=== PATIENT | female | born 1980 | race Caucasian/White ===

== ENCOUNTER 2016-10-27 06:35 | Inpatient (IN) | payer OTHER ==
[2016-10-27 07:20] VITALS: BMI 36.0
[2016-10-27] MEDS ORDERED: ONDANSETRON 4 MG/2 ML VIAL IVPB PRN (08:01)
[2016-10-27] MEDS ORDERED: ELECTROLYTE-148 SOLN 500 ML IV ONE (08:08)
[2016-10-27] MEDS ORDERED: CITRIC ACID/SODIUM CITRATE 30 ML UNIT-DOSE CUP PO ONE (08:08)
[2016-10-27] MEDS ORDERED: ELECTROLYTE-148 SOLN 1,000 ML IV SCH (08:15)
--- NOTE | 2016-10-27 08:15 | HP ---
Past Medical History - Primary Care Physician PCP:: Loly Pearce - Admission Chief Complaint: 36 yrs (AMA), , 39 weeks IUP , previous c/s , requests for repeat c/s & voluntory sterlization History of Present Illness: PNC at [address] [place] [address] work Up : O Pos, Rpr nr, Hbsag neg, Rubella pos, Hiv neg, Quantiferon neg, GBS pos ! hr [id number], 3 Hr Gtt 83/170/130/119 sono reports not on chart History Source: Patient, Medical Record Limitations to Obtaining History: No Limitations - Past Medical History CLAIMS SUPPORT SPECIALIST: No: Migraine, Seizure Cardiovascular: No: HTN Pulmonary: No: Asthma Gastrointestinal: No: Gastritis Renal/: Yes: UTI (in 1st trimester treted) ...: 3 ...Para: 1 ...Term: 1 (06/12/2011 primary c/section 42 weeks, 7'8" girl ) ...: 0 ...Spon : 1 (10/17/2009 ) ...Induced : 0 ...Multiple Gestation: 0 ...LMP: 01/28/16 ... Weeks Gestation by Dates: 39 ...EDC by Dates: 11/03/16 ...EDC by Sono: 11/03/16 (by early sono at 7/1 weeks ) Heme/Onc: Yes: Anemia (rx po iron & pnv) Infectious Disease: No: AIDS, HIV, STD's, Tuberculosis Psych: No: Addictions, Anxiety, Bipolar, Depression, Panic, Psychosis, Schizophrenia - Past Surgical History Past Surgical History: Yes: (06/12/2011) Hx Myomectomy: No Hx Transabdominal Cerclage: No - Smoking History Smoking history: Never smoked Have you smoked in the past 12 months: No - Alcohol/Substance Use Hx Alcohol Use: No History of Substance Use: reports: None Home Medications - Allergies Allergies/Adverse Reactions: Allergies Allergy/AdvReac Type Severity Reaction Status Date / Time No Known Allergies Allergy Verified 04/15/16 11:50 - Home Medications Home Medications: Ambulatory Orders Pnv Comb.no58/Iron Bisgly/FA [ Capsule] 1 cap PO DAILY 06/12/11 Physical Exam - Maternity Vital Signs: Vital Signs Temperature 97.9 F 10/27/16 06:35 Pulse Rate 103 H 10/27/16 06:35 Respiratory Rate 20 10/27/16 06:35 Blood Pressure 114/81 10/27/16 06:35 O2 Sat by Pulse Oximetry (%) Selected Entries 10/27/16 06:35 Weight 197 lb Constitutional: Yes: Well Nourished, Obese Eyes: Yes: WNL HENT: Yes: WNL, Normocephalic Neck: Yes: WNL Cardiovascular: Yes: WNL, Regular Rate and Rhythm Lungs: Clear to auscultation Breast(s): Yes: WNL - Abdominal Exam/OB Fundal Height: 40 Number of Fetuses: Single Presentation: Vertex Contractions: No Heart Rate (range): 130 Heart Rate Location: Midline Category: I Accelerations: Uniform Decelerations: None - Vaginal Exam/OB Vaginal Bleediing: No Speculum Exam: No Dilatation (cm): close Effacement (%): unefface Presentation: Vertex/Position Station: -3 - Physical Exam Musculoskeletal: Yes: WNL Extremities: Yes: WNL. No: Calf Tenderness Edema: Yes Edema: LLE: 1+, RLE: 1+ Integumentary: Yes: Incision (old pfannensteil scar keloid through the length of incision) Deep Tendon Reflex Grade: Normal +2 ...Motor Strength: WNL Psychiatric: Yes: WNL, Alert, Oriented - Labs Lab Results: Laboratory Tests 11/16/10 10/25/16 10/25/16 08:19 10:33 10:33 WBC 7.2 Hgb 12.5 Hct 36.0 Plt Count 157 D Lymphocytes # 28.7 Absolute Monocytes 6.0 Neutrophils % 56.9 Lymphocytes % 33.8 Monocytes % 8.2 Eosinophils % 0.8 Basophils % 0.3 INR Sodium Potassium Chloride Carbon Dioxide BUN Creatinine Random Glucose AST ALT Urine Protein Negative RPR Titer 10/25/16 10/25/16 10/25/16 10:33 10:33 10:33 WBC Hgb Hct Plt Count Lymphocytes # Absolute Monocytes Neutrophils % Lymphocytes % Monocytes % Eosinophils % Basophils % INR 1.04 Sodium 137 Potassium 4.3 Chloride 103 Carbon Dioxide 24 BUN 6 L Creatinine 0.6 Random Glucose 79 AST 19 D ALT 21 Urine Protein RPR Titer Nonreactive Hemorrhage Risk Assessment - Risk Factors Risk Score: 0 Risk Level: Low Risk Problem List - Problems (1) 39 weeks gestation of Code(s): Z3A.39 - 39 WEEKS GESTATION OF (2) Previous section Code(s): Z98.891 - HISTORY OF UTERINE SCAR FROM PREVIOUS SURGERY (3) Multiparity Code(s): Z64.1 - PROBLEMS RELATED TO MULTIPARITY (4) AMA (advanced maternal age) multigravida 35+ Code(s): O09.529 - SUPERVISION OF ELDERLY MULTIGRAVIDA, UNSPECIFIED TRIMESTER (5) Positive GBS test Code(s): B95.1 - STREPTOCOCCUS, GROUP B, CAUSING DISEASES CLASSD [id number] Assessment/Plan 36 yrs 39 weeks, previous c/s, requests for repeat c/s, GBS pos Plan Repeat c/section & BTL Pt informed r/b/a, of BTL possible menorrhagia, dysmenorrhea, failure BTL, , ectopic etc
--- NOTE | 2016-10-27 10:07 | PN ---
Delivery - Delivery Section: Repeat, Low Flap Transverse (BTL & Lysis of adhesions ( omental )) Type of Anesthesia: Spinal Episiotomy/Laceration: None EBL (cc): 500 (velazquez output 50 ml rosy color ) Delivery, Single - Stages of Labor Date of Delivery: 10/27/16 Time of Delivery: 08:40 Time Placenta Delivered: 08:41 Placenta: Yes: Manual Removal, Uterine Exploration - Condition of Electronic Component Processor/Surveyor Mine Present: Yes Name: Fredo Balbuena Infant Gender: Female Weight: 8 lb 3 oz Position: OP Total Hours ROM (Hrs/Mins): 0/1 - 1 Minute Total Score: 9 5 Minutes Total Score: 9 - Feeding Plan Initial Plan: Exclusive throughout hospitalization Remarks - Remarks Remarks: 36 Yrs (AMA) , , 39 weeks, Previous c/s, requests repeat c/section & voluntory sterlization GBS pos PNC at , [facility] Keloid skin old scar excised omental adhesions lysisi was done 2 gm IV Ancef prior to incision was given . Intramural fibroid noted anteriorly 4cm x5cm intraop course uneventful
--- NOTE | 2016-10-27 10:12 | OP ---
Operative Note - Note: Operative Date: 10/27/16 Pre-Operative Diagnosis: 39 weeks, previous c/section, voluntory sterlization Operation: Repeat LFTC/section BTL , Lysis of adhesions, excision of Keloid skin scar Findings: 10/27/16 8.40 AM, 9/9, Wt 8'3". Baby Girl, Op position Both tubes ligated & cut by modified [place]'s technique Intramural 4x5 cm fibroid was noted scarring of subcutaneous tissuse, , skin incision scar keloid excised omental adhesions to parietal peritoneum clamped cut ligated .from both sides both ovaries normal Post-Operative Diagnosis: Other (intramural fibroid , omental adhesions) Surgeon: Loly Pearce House Fellow: Javy Francis Anesthesiologist/COMMUNICATION STUDIES PROFESSOR: Payam Luis Anesthesia: Spinal Specimens Removed: keloid skin scar. placenta. cord blood Estimated Blood Loss (mls): 500 Drains, Volume Out (mls): 50 (velazquez, rosy color ) Fluid Volume Replaced (mls): 1,200 (2 gm IV ancef prior to incision ) Operative Report Dictated: Yes
[2016-10-27] MEDS ORDERED: METHYLERGONOVINE MALEATE 0.2 MG/1 ML AMP IM PRN (10:27)
[2016-10-27] MEDS: D5W-LR W/ 20 UNITS OXYTOCIN 1,000 ML IV SCH (10:34)
--- NOTE | 2016-10-27 11:06 | OP ---
DATE OF OPERATION: 10/27/2016 PREOPERATIVE DIAGNOSIS: at 39 weeks, previous section, voluntary sterilization, and obesity. OPERATION: Repeat low flap transverse section, bilateral tubal ligation, lysis of adhesions, excision of keloid skin scar. SURGEON: Loly Pearce MD PUBLIC WORKS LABORER: ALYSA Gill ANESTHESIOLOGIST: Payam Luis DO ANESTHESIA: Spinal. FINDINGS: This is a 36-year-old 3, para 1-0-1-1. She is 39 weeks gestation, previous , not in labor. She requests voluntary sterilization also. DESCRIPTION OF PROCEDURE: The patient was taken to the operating room table. Abdomen was shaved. Teresa catheter was placed. She was given spinal anesthesia , placed in supine position. Abdomen was painted and draped in the usual manner. The previous skin scar was very much hypertrophied, hyperpigmented, keloid type of a scar throughout the length of the incision, so elliptical incision was made around that scar and old keloid was excised. In subcutaneous tissue a lot of scarring was encountered. Subcutaneous tissue was incised transversely, and then the rectus sheath was from the rectus muscle. The parietal peritoneum was opened vertically. There were omental adhesions on both sides. To enable better exposure, the incision on the right side the muscles were also transected. There were adhesions from the uterus that were excised, and the bladder peritoneum was opened transversely and the bladder was pushed down. Lower uterine segment was incised transversely. Amniotic fluid was clear. Baby was delivered at 8:40 a.m., baby girl from OP position. Cord around the neck was x1. Baby's was 9, 9, and the weight was 8 pounds 3 ounces. Cord was clamped, cut. Cord blood was collected and then placenta was removed completely with the membranes. Uterus was brought out of the incision. Uterine cavity was cleaned, and then the uterine incision was closed in 2 layers. First layer was a continuous locking with the Biosyn 0 suture. The second layer was a continuous intermittent locking with Biosyn 0 suture. Bladder peritoneum was closed with Biosyn 0 suture. Both the tubes were identified at the fimbrial end, and the ampullary portion of the tube was ligated with plain 2-0 suture 2 times, and the portion of the tube above the ligation was cut and endosalpinx was cauterized. This procedure was done both on the left and the right tube, and both the portions of the tubes were sent for pathology examination. Both the ovaries were normal. The uterus was placed back into the peritoneal cavity. The sponge, instrument, and needle count was correct. Irrigation was done and hemostasis was once again verified, then the closure of the abdomen was done. Parietal peritoneum with omental adhesions on the left side and the right side was then cut and ligated with a plain 2-0, and the peritoneum was freed from the adhesions, and then the parietal peritoneum was closed with a Vicryl suture. The muscles were approximated together with a Biosyn 0 suture. Transected muscle also was approximated together with the Biosyn 0 suture. Hemostasis was checked underneath the rectus sheath, then anterior rectus sheath was closed with 0 Vicryl suture. Hemostasis was checked in subcutaneous tissue. Subcutaneous tissue was approximated together with the Biosyn 0 suture with interrupted suture, and then the skin was approximated with 4-0 Biosyn on a V-Loc suture. Intradermal sutures were taken. Pressure dressing was given. Bood clots were removed from the vagina, cleaned with Betadine,. Steri-Strips were applied prior to the pressure dressing on the skin incision. The patient tolerated the procedure well. She was transferred to the recovery room in stable condition. She received 2g of IV Ancef prior to the incision, and she received 1200 ml of crstalloid solution. Urine output was 50 mL. Estimated blood loss was 500 mL. Magdi [id number] MTDD
[2016-10-27] MEDS: IBUPROFEN 800 MG/8 ML IJ IVPB PRN (12:38)
[2016-10-27] MEDS ORDERED: CEFAZOLIN 1 GM/D5W 50 ML IVPB SCH (18:00)
[2016-10-27] MEDS ORDERED: ceFAZolin SODIUM 1 GM VIAL ONE (18:07)
[2016-10-27] MEDS ORDERED: DEXTROSE 5%-WATER - 50 ML IVPB ONE (18:07)
[2016-10-27] MEDS: CEFAZOLIN 1 GM in DEXTROSE 5%-WATER - 50 ML IVPB SCH (18:08)
[2016-10-28] MEDS ORDERED: DEXTROSE 5%-WATER - 50 ML IVPB ONE ×2 (02:05→09:44)
[2016-10-28] MEDS ORDERED: ceFAZolin SODIUM 1 GM VIAL ONE ×2 (02:05→09:44)
[2016-10-28] MEDS: CEFAZOLIN 1 GM in DEXTROSE 5%-WATER - 50 ML IVPB SCH ×2 (02:12→09:49)
[2016-10-28] MEDS: IBUPROFEN 800 MG/8 ML IJ IVPB PRN (04:40)
[2016-10-28 07:25] LABS: BASOPHIL 0.5 % (0-2.0); EOSINOPHIL 0.7 % (0-4.5); MCH 29.7 pg (25.7-33.7); MCHC 35.9 g/dl (32.0-36.0); MEAN CELL VOLUME 82.8 fl (80-96); MEAN PLT VOLUME 10.1 fl (7.5-11.1); PLATELET COUNT 142 K/MM3 (134-434); RDW 15.9 % (11.6-15.6); WHITE BLOOD COUNT 10.8 K/mm3 (4.0-10.0)
[2016-10-28] MEDS: D5W-LR W/ 20 UNITS OXYTOCIN 1,000 ML IV SCH (07:29)
[2016-10-28] MEDS ORDERED: oxyCODONE HCL 5 MG TABLET PO PRN ×2 (08:00)
--- NOTE | 2016-10-28 08:52 | PN ---
Progress Note, Physician Chief Complaint: Pt. ambulating, not yet voided. Pain controlled, no anesthesia complaints. - Current Medication List Current Medications: Active Medications Acetaminophen (Tylenol -) 650 mg PO Q4H PRN PRN Reason: FEVER OR PAIN Bisacodyl (Dulcolax Suppository -) 10 mg RC PRN PRN PRN Reason: CONSTIPATION Diphenhydramine HCl (Benadryl Injection -) 25 mg IVPUSH Q4H PRN PRN Reason: Pruritis Enoxaparin Sodium (Lovenox -) 40 mg SQ DAILY [facility] Ferrous Sulfate (Feosol -) 325 mg PO BIDPC [facility] Dextrose/Lactated Ringer's (Pitocin 20 Units In D5-Lr -) 1,000 mls @ 125 mls/ hr IV ASDIR [facility] Last Admin: 10/28/16 07:29 Dose: 125 mls/hr Cefazolin Sodium 1 gm/ (Dextrose) 50 mls @ 100 mls/hr IVPB Q8H-IV [facility] Stop: 10/28/16 17:59 Last Admin: 10/28/16 02:12 Dose: 100 mls/hr Ibuprofen (Motrin -) 600 mg PO Q4H PRN PRN Reason: PAIN Ibuprofen (Caldolor Injection -) 800 mg IVPB Q8H PRN PRN Reason: PAIN OR FEVER Stop: 10/28/16 10:26 Last Admin: 10/28/16 04:40 Dose: 800 mg Methylergonovine Maleate (Methergine Injection -) 0.2 mg IM Q4H PRN PRN Reason: Excessive Bleeding (L&D) Oxycodone HCl (Roxicodone -) 5 mg PO Q4H PRN PRN Reason: PAIN LEVEL 1-5 Oxycodone HCl (Roxicodone -) 10 mg PO Q4H PRN PRN Reason: PAIN LEVEL 6-10 Multivit/Folic Acid/Iron ( Vitamins (Sjr) -) 1 tab PO DAILY [facility] Simethicone (Mylicon -) 80 mg PO Q4H PRN PRN Reason: GAS - Objective Vital Signs: Vital Signs Temperature 98.1 F 10/28/16 05:57 Pulse Rate 76 10/28/16 05:57 Respiratory Rate 18 10/28/16 05:57 Blood Pressure 96/52 10/28/16 05:57 O2 Sat by Pulse Oximetry (%) Constitutional: Yes: Well Nourished, No Distress, Calm Musculoskeletal: Yes: WNL Neurological: Yes: WNL, Alert, Oriented ...Motor Strength: WNL Labs: CBC, BMP 10/28/16 07:05 Assessment/Plan POD#1 s/p repeat with bilateral tubal ligation under spinal. Doing well. D/C from anesthesia care once she voids.
[2016-10-28] MEDS: SIMETHICONE 80 MG TAB.CHEW (FP) PO PRN ×2 (09:49→21:23)
[2016-10-28] MEDS: ENOXAPARIN NA (PORCINE) 40 MG/0.4 ML DISP.SYRIN SQ SCH ×2 (09:50→12:09)
[2016-10-28] MEDS: FERROUS SO4 325 MG TABLET (FP) PO SCH ×2 (10:25→19:27)
[2016-10-28] MEDS ORDERED: BISACODYL 10 MG SUPP.RECT RC PRN (10:27)
--- NOTE | 2016-10-28 11:01 | PN ---
Progress Note (short form) - Note Progress Note: pod 1 doing well, has mild incisional pain Last Vital Signs Temp Pulse Resp BP Pulse Ox 98.1 F 76 18 96/52 10/28/16 05:57 10/28/16 05:57 10/28/16 05:57 10/28/16 05:57 Last Vital Signs Temp Pulse Resp BP Pulse Ox 98.1 F 76 18 96/52 10/28/16 05:57 10/28/16 05:57 10/28/16 05:57 10/28/16 05:57 abdomen soft, no distension, no cva uterus firm, non tender no calf tenderness plan ambulate , pain management. advance diet CBC, BMP 10/28/16 07:05
[2016-10-28] MEDS: PRENATAL VITAMINS W/ FOLIC ACID TABLET (FP) PO SCH (12:07)
[2016-10-28] MEDS: ACETAMINOPHEN 325 MG TABLET (FP) PO PRN ×2 (12:27→21:24)
[2016-10-28] MEDS: IBUPROFEN 600 MG TABLET (FP) PO PRN ×2 (12:27→21:25)
[2016-10-29] MEDS: IBUPROFEN 600 MG TABLET (FP) PO PRN ×2 (08:36→17:59)
[2016-10-29] MEDS: SIMETHICONE 80 MG TAB.CHEW (FP) PO PRN ×2 (08:37→17:58)
[2016-10-29] MEDS: FERROUS SO4 325 MG TABLET (FP) PO SCH ×2 (08:37→17:58)
[2016-10-29] MEDS: ENOXAPARIN NA (PORCINE) 40 MG/0.4 ML DISP.SYRIN SQ SCH (10:30)
[2016-10-29] MEDS: PRENATAL VITAMINS W/ FOLIC ACID TABLET (FP) PO SCH (10:30)
--- NOTE | 2016-10-29 14:30 | PN ---
Progress Note (short form) - Note Progress Note: pod 2 doing well, had BM, no c/o CBC, BMP 10/28/16 07:05 Last Vital Signs Temp Pulse Resp BP Pulse Ox 97.9 F 76 20 96/60 10/28/16 19:00 10/28/16 19:00 10/28/16 19:00 10/28/16 19:00 abdomen soft, no distension, no cva incision dry, clean , healing well no calf tenderness plan ambulate, cbc in am
[2016-10-29] MEDS: ACETAMINOPHEN 325 MG TABLET (FP) PO PRN (17:58)
[2016-10-30 07:00] LABS: BASOPHIL 0.3 % (0-2.0); EOSINOPHIL 2.8 % (0-4.5); MCH 29.3 pg (25.7-33.7); MCHC 35.3 g/dl (32.0-36.0); MEAN PLT VOLUME 10.3 fl (7.5-11.1); NEUTROPHILS 59.9 % (42.8-82.8); PLATELET COUNT 176 K/MM3 (134-434); RDW 16.2 % (11.6-15.6); WHITE BLOOD COUNT 8.5 K/mm3 (4.0-10.0)
--- NOTE | 2016-10-30 08:21 | PN ---
Progress Note (short form) - Note Progress Note: pod 3 doing well, no c/o , wants to go home today CBC, BMP 10/30/16 05:25 Last Vital Signs Temp Pulse Resp BP Pulse Ox 98.6 F 80 20 106/69 10/29/16 21:19 10/29/16 21:19 10/29/16 21:19 10/29/16 21:19 abdomen soft, non tender ,, no cva incision dry, clean no calf tenderness plan d/c home follow [facility] care 1 week
[2016-10-30] MEDS: FERROUS SO4 325 MG TABLET (FP) PO SCH (09:34)
[2016-10-30] MEDS: D5W-LR W/ 20 UNITS OXYTOCIN 1,000 ML IV SCH (09:34)
[2016-10-30] MEDS: ENOXAPARIN NA (PORCINE) 40 MG/0.4 ML DISP.SYRIN SQ SCH (09:34)
[2016-10-30] MEDS: PRENATAL VITAMINS W/ FOLIC ACID TABLET (FP) PO SCH (11:16)
[2016-10-30 12:22] VITALS: BP 103/63; PULSE 76; TEMP 98.1
--- NOTE | 2016-10-31 18:16 | DS ---
Physical Exam-USER SUPPORT ANALYST Vital Signs: Vital Signs Temperature 98.1 F 10/30/16 10:00 Pulse Rate 76 10/30/16 10:00 Respiratory Rate 20 10/30/16 10:00 Blood Pressure 103/63 10/30/16 10:00 O2 Sat by Pulse Oximetry (%) Constitutional: Yes: Well Nourished, Obese, Other (pain scale5/10) Eyes: Yes: WNL HENT: Yes: WNL, Normocephalic Neck: Yes: WNL Cardiovascular: Yes: WNL, Regular Rate and Rhythm Respiratory: Yes: WNL, CTA Bilaterally Gastrointestinal: Yes: WNL, Normal Bowel Sounds, Abdomen, Obese, Other (bm done) . No: Distention ...Rectal Exam: Yes: WNL Renal/: Yes: WNL, Other (voiding without difficulty) External Genitalia: Yes: Normal ....Post : Yes: Uterus firm, Uterus non-tender, Slight lochia rubra Breast(s): Yes: WNL (BF , not engorged) Musculoskeletal: Yes: WNL Extremities: Yes: WNL. No: Calf Tenderness Edema: Yes Edema: LLE: 1+, RLE: 1+ Wound/Incision: Yes: Clean/Dry, Well Approximated, Sutures Intact (inradermal sutures), Steri Strips, Open to air. No: Reddened, Bleeding, Excoriated Neurological: Yes: WNL, Alert, Oriented ...Motor Strength: WNL Psychiatric: Yes: WNL, Alert, Oriented Labs: CBC, BMP 10/30/16 05:25 Delivery - Delivery Section: Repeat, Low Flap Transverse (BTL & Lysis of adhesions ( omental )) Type of Anesthesia: Spinal Episiotomy/Laceration: None EBL (cc): 500 (velazquez output 50 ml rosy color ) Delivery, Single - Stages of Labor Date of Delivery: 10/27/16 Time of Delivery: 08:40 Time Placenta Delivered: 08:41 Placenta: Yes: Manual Removal, Uterine Exploration - Condition of Application Security Specialist/Diversional Therapist Present: Yes Name: Fredo Balbuena Infant Gender: Female Weight: 8 lb 3 oz Position: OP Total Hours ROM (Hrs/Mins): 0/1 - 1 Minute Total Score: 9 5 Minutes Total Score: 9 - Feeding Plan Initial Plan: Exclusive throughout hospitalization Remarks - Remarks Remarks: 36 Yrs (AMA) , , 39 weeks, Previous c/s, requests repeat c/section & voluntory sterlization GBS pos PNC at [address] [place] [address] Keloid skin old scar excised omental adhesions lysisi was done 2 gm IV Ancef prior to incision was given . Intramural fibroid noted anteriorly 4cm x5cm intraop course uneventful post op course was uneventful discharged by Dr Gómez on 10/30/16 Discharge Summary Reason For Visit: SCHEDULED Condition: Stable - Instructions Diet, Activity, Other Instructions: Post Instructions DIET: Continue good diet high in protein, calcium, and iron rich foods. Drink at least eight (8) glasses of water daily in addition to other fluids. ct Regular diet MEDICATIONS: Continue vitamins and iron as previously directed. Motrin and Tylenol may be taken for minor discomfort. ACTIVITY: Mild to moderate exercise may be started in two (2) weeks. Take frequent rest periods. Resume normal activity after six (6) week check up. WOUND CARE OF OPERATIVE SITE: Continue use of perineal bottle until vaginal discharge stops. Keep area clean. Shower daily. Keep abdominal wound dry. Report any drainage or redness to physician. Tub baths, tampons and douches are not permitted for [address] Breast feeding & or Bottle feeding BREAST CARE: (For those that are not breast feeding): If engorgement occurs: Wear tight fitting bra. Take Tylenol or Motrin for pain. Apply cold packs (ice in bags to each breast ) FAMILY PLANNING: There are many control alternatives to pursue and they should be discussed at your first office visit. You may resume sexual activity after your six (6) week check up. (Remember, breast feeding is not a contraceptive) NEXT PHYSICIAN APPOINTMENT: Be certain to call for a one (1) week appointment, unless otherwise directed. RTC for wound check Call Clinic or got to Emergency Dept if you have any of the following: Heavy vaginal bleeding Painful urination Leg pain Unusual odor noted to vaginal bleeding High fever Red streaking noted on breast Referrals: Loly Pearce MD [Staff Physician] - Disposition: HOME - Home Medications Comprehensive Discharge Medication List: Ambulatory Orders Pnv Comb.no58/Iron Bisgly/FA [ Capsule] 1 cap PO DAILY 06/12/11 Acetaminophen [Tylenol .Regular Strength -] 500 mg PO Q4H PRN #30 tablet Ibuprofen [Motrin -] 600 mg PO Q4H PRN #30 tablet 10/27/16
--- NOTE | 2016-11-01 14:39 | PATH ---
Surgical Pathology Report Patient Name: RIA ELLIOTT Med. Rec. #: [id number] /Age/Gender: 1980 (Age: 36) / F Account: [id number] Location: [facility] OBS/DERMATOLOGY PHYSICIAN ASSISTANT Taken: 10/27/2016 Received: 10/30/2016 Reported: 11/01/2016 Physicians: Loly Pearce M.D. Specimen(s) Received A: PLACENTA B: PORTION FALLOPIAN TUBE LEFT C: PORTION FALLOPIAN TUBE RIGHT D: OLD SCAR Clinical History , c/section x1, miscarriage x1, term gestation Repeat c/section with BTL Final Diagnosis A. PLACENTA, DELIVERY: FOCALLY DISRUPTED THIRD TRIMESTER PLACENTA WITH MILD INCREASE IN PREVILLOUS, PERIVILLOUS, AND PRECHORIONIC FIBRIN DEPOSITION, THREE VESSEL UMBILICAL CORD, AND PLACENTAL MEMBRANES WITH FOCAL LAMELLAR NECROSIS AND FOCAL AMNION HYPERPLASIA. B. PORTION OF FALLOPIAN TUBE, LEFT, LIGATION: SEGMENT OF FALLOPIAN TUBE WITH COMPLETE CROSS SECTION. C. PORTION OF FALLOPIAN TUBE, RIGHT, LIGATION: SEGMENTS OF FALLOPIAN TUBE WITH COMPLETE CROSS SECTION D. OLD SCAR, EXCISION: SKIN WITH KELOIDAL SCAR. Electronically Signed Tremaine Gerard M.D. Gross Description A. The specimen is received fresh, labeled "placenta" and is a 588 gram, 20.5 x 17.0 x 2.8 cm placenta with attached membranes and umbilical cord. The attached membranes are liu, focally thickened and insert marginally. The umbilical cord measures 36 cm. in length and averages 1.1 cm in diameter. The cord inserts eccentrically, 3.5 cm to the nearest margin. No true knots or strictures are identified. Cut surface of the umbilical cord reveals 3 vessels. The surface is eli-blue with fibrin deposition and appropriate caliber vessels. The maternal surface is red-brown with focal defects. Sectioning reveals red-brown, spongy parenchyma. No focal lesions are identified. Parking Garage Manager sections are submitted in three cassettes as follows: 1- membrane rolls and umbilical cord; 2-3- full thickness sections of placenta. B. Received in formalin labeled "left portion of tube" is a 2 cm in length portion of fallopian tube. No fimbria are present. The outer surface is liu-zambrano and smooth. Sectioning reveals an unremarkable lumen. Parking Garage Manager sections are submitted in one cassette. C. Received in formalin labeled "right portion of tube" is a 2.5 cm in length portion of fallopian tube. No fimbria are present. The outer surface is liu-zambrano and smooth. Sectioning reveals an unremarkable lumen. Parking Garage Manager sections are submitted in one cassette. D. Received in formalin labeled "old scar" is a 15.5 x 1.3 cm liu-brown, unoriented, elliptical portion of skin excised to a depth of 2.0 cm. The epidermal surface displays a hypertrophic scar. Parking Garage Manager sections are submitted in one cassette. 10/31/2016 [facility]
== END 2016-10-30 11:55 | disposition home or self-care (01) | DRG 766 ==
LOC: JLDR 06:35 → J3W 11:30
PROVIDERS: ADMIT Obstetrics & Gynecology; ATTEND Obstetrics & Gynecology
PROC: 10D00Z1 Extraction of Products of Conception, Low, Open Approach (ICD-10-PCS; principal; 2016-10-27)
PROC: 0UL70ZZ Occlusion of Bilateral Fallopian Tubes, Open Approach (ICD-10-PCS; 2016-10-27)
PROC: 0DNW0ZZ Release Peritoneum, Open Approach (ICD-10-PCS; 2016-10-27)
PROC: 0HB7XZZ Excision of Abdomen Skin, External Approach (ICD-10-PCS; 2016-10-27)
DX: O34.211 Maternal care for low transverse scar from previous cesarean delivery (principal); O99.824 Streptococcus B carrier state complicating childbirth; O99.214 Obesity complicating childbirth; Z68.36 Body mass index [BMI] 36.0-36.9, adult; O69.81X0 Labor and delivery complicated by cord around neck, without compression, not applicable or unspecified; O99.62 Diseases of the digestive system complicating childbirth; O34.13 Maternal care for benign tumor of corpus uteri, third trimester; D25.1 Intramural leiomyoma of uterus; E66.9 Obesity, unspecified; K66.0 Peritoneal adhesions (postprocedural) (postinfection); O99.89 Other specified diseases and conditions complicating pregnancy, childbirth and the puerperium; L91.0 Hypertrophic scar; Z30.2 Encounter for sterilization; Z3A.39 39 weeks gestation of pregnancy; Z37.0 Single live birth
CPT/HCPCS: 36415; 85025; 88302-TC; 88304-TC; 88307-TC